=== PATIENT | male | born 1975 | race Caucasian/White ===

== ENCOUNTER 2016-12-08 18:00 | Emergency (ER) | payer SELFPAY ==
--- NOTE | 2016-12-08 18:26 | PDOC ---
Rapid Medical Evaluation Time Seen by Provider: 12/08/16 18:21 Medical Evaluation: 12/08/16 18:25 I have performed a brief in-person evaluation of this patient. The patient presents with a chief complaint of: chest pain and headache x several days. No pmhx or illicit drug use Pertinent physical exam findings: Pt in distress, holding hand over L chest but stable by vitals I have ordered the following:ekg/trop/cbc/chem The patient will proceed to the ED for further evaluation. 12/08/16 18:29
[2016-12-08 18:27] VITALS: TEMP 97.8; BMI 33.6
[2016-12-08 19:16] LABS: BASOPHIL 0.3 % (0-2.0); EOSINOPHIL 2.2 % (0-4.5); MCH 29.7 pg (25.7-33.7); MCHC 34.5 g/dl (32.0-35.9); MEAN CELL VOLUME 86.1 fl (80-96); MEAN PLT VOLUME 9.1 fl (7.5-11.1); PLATELET COUNT 219 K/MM3 (134-434); RDW 13.3 % (11.9-15.9); WHITE BLOOD COUNT 8.6 K/mm3 (4.0-10.0)
[2016-12-08 20:01] LABS: ALBUMIN 4.1 g/dl (3.4-5.0); ANION GAP 8 (8-16); CALCIUM 8.6 mg/dL (8.5-10.1); CO2 25 mmol/L (21-32); CREATININE 1.2 mg/dL (0.7-1.3); GLUCOSE,RANDOM 100 mg/dL (74-106); SGOT/AST 15 U/L (15-37); SGPT/ALT 43 U/L (12-78)
[2016-12-08 20:05] LABS: ALK PHOS 79 U/L (45-117); BILIRUBIN,TOTAL 0.6 mg/dL (0.2-1.0); CPK 132 IU/L (39-308); TOT PROT 7.3 g/dl (6.4-8.2); TROPONIN I < 0.02 ng/ml (0.00-0.05)
--- NOTE | 2016-12-08 20:56 | PDOC ---
History of Present Illness - General History Source: Patient Exam Limitations: No Limitations - History of Present Illness Initial Comments: 12/08/16 21:14 The patient is a 41 year old male with a significant PMH of hyperlipidemia who presents to the emergency department with chest pain and palpitations beginning approximately 4 days ago. The patient describes the chest pain as a throbbing sensation, beginning in the midsternal area and radiating to the left side of his neck only. He reports an associated concomitant headache during the past 4 days. He reports feeling similar symptoms in the past and being evaluated 2 years ago at [facility], but notes not being prescribed anything. The patient denies taking medication for his headache. The patient denies shortness of breath and dizziness. Denies fever, chills, nausea, vomit, diarrhea and constipation. Denies dysuria, frequency, urgency and hematuria. Allergies: NKA Past surgical history: None reported. Social history: No reported toxic habits. PCP: Not on Staff. <Kalin Maguire - Last Filed: 12/08/16 21:33> - General History Source: Patient <Gallito Maciel - Last Filed: 12/09/16 19:17> - General Chief Complaint: Chest Pain Stated Complaint: CHEST PAIN Time Seen by Provider: 12/08/16 18:21 Past History <Kalin Maguire - Last Filed: 12/08/16 21:33> - Past Medical History COPD: No Other medical history: NONE - Suicide/Smoking/Psychosocial Hx Smoking History: Never smoked Information on smoking cessation initiated: No Hx Alcohol Use: No Drug/Substance Use Hx: No Substance Use Type: None <Gallito Maciel - Last Filed: 12/09/16 19:17> - Past Medical History Allergies/Adverse Reactions: Allergies Allergy/AdvReac Type Severity Reaction Status Date / Time No Known Allergies Allergy Verified 12/08/16 18:27 Review of Systems - Review of Systems Able to Perform ROS?: Yes Comments:: 12/08/16 21:16 CONSTITUTIONAL: Absent: fever, chills, diaphoresis, generalized weakness, malaise, loss of appetite HEENT: (+) Neck pain. Absent: rhinorrhea, nasal congestion, throat pain, throat swelling, difficulty swallowing, mouth swelling, ear pain, eye pain, visual Changes CARDIOVASCULAR: (+) Chest pain. (+) Palpitations. Absent: syncope, irregular heart rate, lightheadedness, peripheral edema RESPIRATORY: Absent: cough, shortness of breath, dyspnea with exertion, orthopnea, wheezing, stridor, hemoptysis GASTROINTESTINAL: Absent: abdominal pain, abdominal distension, nausea, vomiting, diarrhea, constipation, melena, hematochezia GENITOURINARY: Absent: dysuria, frequency, urgency, hesitancy, hematuria, flank pain, genital pain MUSCULOSKELETAL: Absent: myalgia, arthralgia, joint swelling SKIN: Absent: rash, itching, pallor HEMATOLOGIC/IMMUNOLOGIC: Absent: easy bleeding, easy bruising, lymphadenopathy, frequent infections ENDOCRINE: Absent: unexplained weight gain, unexplained weight loss, heat intolerance, cold intolerance NEUROLOGIC: (+) Headache Absent: focal weakness or paresthesias, dizziness, unsteady gait, seizure, mental status changes, bladder or bowel incontinence PSYCHIATRIC: Absent: anxiety, depression, suicidal or homicidal ideation, hallucinations. <Kalin Maguire - Last Filed: 12/08/16 21:33> *Physical Exam - Vital Signs Last Vital Signs Temp Pulse Resp BP Pulse Ox 97.8 F 62 20 144/77 99 12/08/16 18:25 12/08/16 18:25 12/08/16 18:25 12/08/16 18:25 12/08/16 18:25 - Physical Exam Comments: 12/08/16 21:16 GENERAL: Well developed, well nourished. Awake and alert. No acute distress. HEENT: Normocephalic, atraumatic. PERRLA, EOMI. No conjunctival pallor. Sclera are non- icteric. Moist mucous membranes. Oropharynx is clear. NECK: Supple. Full ROM. No JVD. Carotid pulses 2+ and symmetric, without bruits. No thyromegaly. No lymphadenopathy. CARDIOVASCULAR: Regular rate and rhythm. No murmurs, rubs, or gallops. Distal pulses are 2+ and symmetric. PULMONARY: No evidence of respiratory distress. Lungs clear to auscultation bilaterally. No wheezing, rales or rhonchi. ABDOMINAL: Soft. Non-tender. Non-distended. No rebound or guarding. No organomegaly. Normoactive bowel sounds. MUSCULOSKELETAL Normal range of motion at all joints. No bony deformities or tenderness. No CVA tenderness. EXTREMITIES: No cyanosis. No clubbing. No edema. No calf tenderness. SKIN: Warm and dry. Normal capillary refill. No rashes. No jaundice. NEUROLOGICAL: Alert, awake, appropriate. Cranial nerves 2-12 intact. No deficits to light touch and temperature in face, upper extremities and lower extremities. No motor deficits in the in face, upper extremities and lower extremities. Normoreflexic in the upper and lower extremities. Normal speech. Toes are downgoing bilaterally. Gait is normal without ataxia. PSYCHIATRIC: Cooperative. Good eye contact. Appropriate mood and affect. <Kalin Maguire - Last Filed: 12/08/16 21:33> - Vital Signs Last Vital Signs Temp Pulse Resp BP Pulse Ox 97.8 F 62 20 144/77 99 12/08/16 18:25 12/08/16 18:25 12/08/16 18:25 12/08/16 18:25 12/08/16 18:25 <Gallito Maciel - Last Filed: 12/09/16 19:17> Heart Score/ECG Review #1 12/08/16 21:26 Vent rate 55 bpm Sinus bradycardia Otherwise normal ECG #2 12/08/16 21:34 Vent rate 55 bpm Sinus bradycardia Otherwise normal ECG. <Kalin Maguire - Last Filed: 12/08/16 21:33> ED Treatment Course - LABORATORY CBC & Chemistry Diagram: 12/08/16 19:08 12/08/16 19:08 - ADDITIONAL ORDERS Additional order review: Laboratory Results 12/08/16 19:08 Sodium 139 Potassium 3.9 Chloride 106 Carbon Dioxide 25 Anion Gap 8 BUN 18 Creatinine 1.2 Creat Clearance w eGFR > 60 Random Glucose 100 Calcium 8.6 Total Bilirubin 0.6 AST 15 ALT 43 Alkaline Phosphatase 79 Creatine Kinase 132 Troponin I < 0.02 Total Protein 7.3 Albumin 4.1 12/08/16 19:08 RBC 5.02 MCV 86.1 MCHC 34.5 RDW 13.3 MPV 9.1 Neutrophils % 60.0 Lymphocytes % 30.4 Monocytes % 7.1 Eosinophils % 2.2 Basophils % 0.3 <Kalin Maguire - Last Filed: 12/08/16 21:33> - LABORATORY CBC & Chemistry Diagram: 12/08/16 19:08 12/08/16 19:08 - ADDITIONAL ORDERS Additional order review: Laboratory Results 12/08/16 19:08 Sodium 139 Potassium 3.9 Chloride 106 Carbon Dioxide 25 Anion Gap 8 BUN 18 Creatinine 1.2 Creat Clearance w eGFR > 60 Random Glucose 100 Calcium 8.6 Total Bilirubin 0.6 AST 15 ALT 43 Alkaline Phosphatase 79 Creatine Kinase 132 Troponin I < 0.02 Total Protein 7.3 Albumin 4.1 12/08/16 19:08 RBC 5.02 MCV 86.1 MCHC 34.5 RDW 13.3 MPV 9.1 Neutrophils % 60.0 Lymphocytes % 30.4 Monocytes % 7.1 Eosinophils % 2.2 Basophils % 0.3 <Gallito Maciel - Last Filed: 12/09/16 19:17> Medical Decision Making - Medical Decision Making 12/08/16 23:30 Dr. Maciel: The scribe's documentation has been prepared under my direction and personally reviewed by me in its entirery. I confirm that the note above accurately reflects all work, treatment, procedures, and medical decision making performed by me. 12/09/16 19:16 troponin times 2 both negative. Pt advised to follow up with internal medicine and cardiology for further evaluation. <Gallito Maciel - Last Filed: 12/09/16 19:17> *DC/Admit/Observation/Transfer - Attestations Scribe Attestion: 12/08/16 21:16 Documentation prepared by Kalin Maguire, acting as medical record clerk for Gallito Maciel DO. <Kalin Maguire - Last Filed: 12/08/16 21:33> - Discharge Dispostion Admit: No <Gallito Maciel - Last Filed: 12/09/16 19:17> Diagnosis at time of Disposition: Palpitations Chest pain Qualifiers: Chest pain type: unspecified Qualified Code(s): R07.9 - Chest pain, unspecified - Discharge Dispostion Disposition: HOME Condition at time of disposition: Stable - Referrals Referrals: Elder Reyes MD [Staff Physician] - Denilson Alvarado MD [Staff Physician] - - Patient Instructions Printed Discharge Instructions: DI for Chest Pain, DI for Palpitations Additional Instructions: Please follow up with cardiology for complete evaluation. Print Language: NIGERIAN
[2016-12-08] MEDS ORDERED: ASPIRIN 81 MG CHEWABLE TABLETS PO ONE (21:02)
[2016-12-08] MEDS ORDERED: ASPIRIN 325 MG ENTERIC COATED TABLET (FP) ONE (21:57)
[2016-12-08 22:29] VITALS: BP 132/76; PULSE 56
[2016-12-08 23:05] LABS: CPK 120 IU/L (39-308); TROPONIN I < 0.02 ng/ml (0.00-0.05)
--- NOTE | 2016-12-09 17:02 | EKG ---
Test Reason : Blood Pressure : / mmHG Vent. Rate : 055 BPM Atrial Rate : 055 BPM P-R Int : 154 ms QRS Dur : 088 ms QT Int : 394 ms P-R-T Axes : 069 023 027 degrees QTc Int : 376 ms SINUS BRADYCARDIA OTHERWISE NORMAL ECG WHEN COMPARED WITH ECG OF 08-DEC-2016 18:28, NO SIGNIFICANT CHANGE WAS FOUND Confirmed by JOCELYNN BAIRES MD ([id number]) on 12/09/2016 5:01:54 PM Referred By: Confirmed By:JOCELYNN BAIRES MD
--- NOTE | 2016-12-09 17:03 | EKG ---
Test Reason : Blood Pressure : / mmHG Vent. Rate : 055 BPM Atrial Rate : 055 BPM P-R Int : 146 ms QRS Dur : 094 ms QT Int : 408 ms P-R-T Axes : 062 033 039 degrees QTc Int : 390 ms SINUS BRADYCARDIA OTHERWISE NORMAL ECG NO PREVIOUS ECGS AVAILABLE Confirmed by JOCELYNN BAIRES MD ([id number]) on 12/09/2016 5:02:51 PM Referred By: Confirmed By:JOCELYNN BAIRES MD
== END 2016-12-08 23:33 | disposition home or self-care (01) ==
LOC: JER 18:00
DX: R00.2 Palpitations (principal); R07.9 Chest pain, unspecified
CPT/HCPCS: 36415; 71020-TC; 80053; 82550; 84484; 85025; 93005; 93010; 99283-25

== ENCOUNTER 2018-07-17 11:48 | Emergency (ER) | payer SELFPAY, OTHER | END 2018-07-17 18:25 | LOC: JER 11:48 ==

== ENCOUNTER 2018-08-12 01:43 | Emergency (ER) | payer SELFPAY ==
[2018-08-12 02:02] VITALS: BP 130/83; PULSE 62; TEMP 97.9; BMI 34.2
== END 2018-08-12 03:08 | disposition left against medical advice (07) ==
LOC: JER 01:43
DX: Z53.21 Procedure and treatment not carried out due to patient leaving prior to being seen by health care provider (principal)
CPT/HCPCS: 99281-25

== ENCOUNTER 2023-10-01 12:00 | Emergency (ER) | payer SELFPAY ==
[2023-10-01 12:08] VITALS: BP 158/95; PULSE 70; RESP 20; TEMP 98.8; BMI 33.3
[2023-10-01] MEDS ORDERED: SULFAMETHOXAZOLE/TRIMETHOPRIM 800MG/160MG D.S. TABLET ONE (13:28)
[2023-10-01] MEDS ORDERED: KETOROLAC TROMETHAMINE 30 MG/1 ML VIAL ONE (13:28)
[2023-10-01] MEDS ORDERED: ACETAMINOPHEN 500 MG TABLET (FP) ONE (13:33)
[2023-10-01] MEDS: SULFAMETHOXAZOLE/TRIMETHOPRIM 800MG/160MG D.S. TABLET PO ONE (13:41)
[2023-10-01] MEDS: ACETAMINOPHEN 500 MG TABLET (FP) PO ONE (13:41)
[2023-10-01] MEDS: KETOROLAC TROMETHAMINE 30 MG/1 ML VIAL IM ONE (13:41)
== END 2023-10-01 13:42 | disposition home or self-care (01) ==
LOC: JER 12:00 → JERFT 12:00
PROC: 3E0233Z Introduction of Anti-inflammatory into Muscle, Percutaneous Approach (ICD-10-PCS; principal; 2023-10-01)
DX: M25.562 Pain in left knee (principal); L03.116 Cellulitis of left lower limb; M25.462 Effusion, left knee
CPT/HCPCS: 73562-TC-LT-FY; 99284-25